=== PATIENT | female | born 1965 | race Caucasian/White ===

== ENCOUNTER 2017-08-22 13:05 | Emergency (ER) | payer SELFPAY ==
[~2017-08-22] VITALS: Ht 157.5 cm; Wt 61.7 kg
[~2017-08-22 13:05] MED LIST: ACEBUTCAFT PO; ALBU90OI INH; AMOCLA875 PO; AVINZA 30 MG; AZIT500 PO; BACL10 PO; CARI350; CARI350 PO; CIPR500 PO; CITA20 PO; CRUTCH3 USE; CYCL10 PO; DIAZ10; ERGO400 PO; ESOM20 PO; FLUT.05NI; HYDACE10B; HYDACE10B PO; HYDACE5; HYDACE5 PO; HYDR1TAB94 PO; HYDROCODONE/ACETAMIN; IBUHYD PO; IBUP200; IBUP400; IBUP600 PO; IBUP800; IBUP800 PO; LAVAP17G PO; LORA2 PO; MOMENI; NAPR500 PO; NAPR550 PO; Norco 5-325 Ta1 EACH PO; OMEP20ER PO; OXYACE5T PO; OXYC10TA19 PO; PENVK500 PO; PRAM.5; PRED20 PO; PREG50; PROC10 PO; PROM25 PO; Percocet 10-321 EACH PO; Percocet 5-3251 EACH PO; Protonix40 MG PO; RANI150 PO; RXCODACESY PO; RXCYCL10 PO; RXHYD5325 PO; RXHYDACE PO; RXLORA1 PO; RXNAPNA550 PO; RXOXYACE PO; RXPROM25 PO; RXTRAM50 PO; Robaxin500 MG PO; SENN187 PO; SERT50 PO; SPIHYD PO; Silvadene20 GM TP; TRAM50 PO; Ultram50 MG PO; VICODIN HP 10-1 EACH PO; Valium5 MG PO; Vibramycin100 MG PO; Vicodin PO; Zofran Odt4 MG SL; [UNRECOGNIZED DRUG - OTHER]
== END 2017-08-22 16:20 | disposition left against medical advice (07) ==
LOC: ER 13:05
DX: Z53.21 Procedure and treatment not carried out due to patient leaving prior to being seen by health care provider (principal)

== ENCOUNTER 2017-08-24 11:26 | Emergency (ER) | payer BC ==
[~2017-08-24] VITALS: Ht 157.5 cm; Wt 59.4 kg
== END 2017-08-24 16:55 | disposition home or self-care (01) ==
LOC: ER 11:26
DX: M21.332 Wrist drop, left wrist (principal); R53.1 Weakness; R20.2 Paresthesia of skin; G43.909 Migraine, unspecified, not intractable, without status migrainosus; Z88.6 Allergy status to analgesic agent; Z88.8 Allergy status to other drugs, medicaments and biological substances; Z88.5 Allergy status to narcotic agent; Z79.899 Other long term (current) drug therapy
CPT/HCPCS: 72141; 99284

== ENCOUNTER 2018-02-24 01:48 | Emergency (ER) | payer BC ==
[~2018-02-24] VITALS: Ht 154.9 cm; Wt 59.4 kg
[~2018-02-24 01:48] MED LIST changes: +GABA300 PO; +Roxicodone5 MG PO
== END 2018-02-24 03:25 | disposition home or self-care (01) ==
LOC: ER 01:48
DX: S52.302A Unspecified fracture of shaft of left radius, initial encounter for closed fracture (principal); S50.12XA Contusion of left forearm, initial encounter; Y04.8XXA Assault by other bodily force, initial encounter; Z88.6 Allergy status to analgesic agent; Z88.5 Allergy status to narcotic agent; Z88.8 Allergy status to other drugs, medicaments and biological substances; Z79.899 Other long term (current) drug therapy; Z79.891 Long term (current) use of opiate analgesic; G43.909 Migraine, unspecified, not intractable, without status migrainosus; F17.210 Nicotine dependence, cigarettes, uncomplicated
CPT/HCPCS: 29105; 73060; 73090; 96372; 99283-25; J3010

== ENCOUNTER 2018-03-22 22:10 | Emergency (ER) | payer BC ==
[~2018-03-22] VITALS: Ht 157.5 cm; Wt 57.6 kg
== END 2018-03-22 23:54 | disposition left against medical advice (07) ==
LOC: ER 22:10
DX: Z53.21 Procedure and treatment not carried out due to patient leaving prior to being seen by health care provider (principal)

== ENCOUNTER 2018-06-19 01:26 | Emergency (ER) | payer BC ==
[~2018-06-19] VITALS: Ht 157.5 cm; Wt 59.4 kg
== END 2018-06-19 02:50 | disposition home or self-care (01) ==
LOC: ER 01:26
DX: S09.90XA Unspecified injury of head, initial encounter (principal); F10.129 Alcohol abuse with intoxication, unspecified; Z88.5 Allergy status to narcotic agent; Z88.6 Allergy status to analgesic agent; Z79.899 Other long term (current) drug therapy; G43.909 Migraine, unspecified, not intractable, without status migrainosus; F17.210 Nicotine dependence, cigarettes, uncomplicated; X58.XXXA Exposure to other specified factors, initial encounter; Y09 Assault by unspecified means
CPT/HCPCS: 70450; 99284-25

== ENCOUNTER 2019-06-19 22:13 | Emergency (ER) | payer BC, MEDICARE ==
[~2019-06-19] VITALS: Ht 160 cm; Wt 57.6 kg
== END 2019-06-20 00:37 | disposition left against medical advice (07) ==
LOC: ER 22:13
DX: Z53.21 Procedure and treatment not carried out due to patient leaving prior to being seen by health care provider (principal)
CPT/HCPCS: 99281; 99283

== ENCOUNTER 2019-10-26 20:36 | Emergency (ER) | payer BC, MEDICARE ==
[~2019-10-26] VITALS: Ht 160 cm; Wt 54.9 kg
== END 2019-10-26 22:48 | disposition home or self-care (01) ==
LOC: ER 20:36
DX: S30.0XXA Contusion of lower back and pelvis, initial encounter (principal); Z76.5 Malingerer [conscious simulation]; Z88.6 Allergy status to analgesic agent; Z88.5 Allergy status to narcotic agent; Z79.899 Other long term (current) drug therapy; F17.200 Nicotine dependence, unspecified, uncomplicated; W19.XXXA Unspecified fall, initial encounter
CPT/HCPCS: 99283

== ENCOUNTER 2020-04-12 01:43 | Emergency (ER) | payer MEDICARE ==
[~2020-04-12] VITALS: Ht 160 cm; Wt 52.2 kg
[2020-04-12] MEDS ORDERED: LIDO700A20 TOP (03:30)
== END 2020-04-12 03:50 | disposition home or self-care (01) ==
LOC: ER 01:43
DX: M54.5 Low back pain (principal); G89.29 Other chronic pain; F17.200 Nicotine dependence, unspecified, uncomplicated; Z79.899 Other long term (current) drug therapy; Z88.6 Allergy status to analgesic agent; Z88.5 Allergy status to narcotic agent; Z88.8 Allergy status to other drugs, medicaments and biological substances
CPT/HCPCS: 72100; 99283-25; A9270

== ENCOUNTER 2020-08-17 20:17 | Emergency (ER) | payer MEDICARE ==
[~2020-08-17] VITALS: Ht 160 cm; Wt 53.1 kg
[~2020-08-17 20:17] MED LIST changes: +LIDO700A20 TOP
[2020-08-17] MEDS ORDERED: LIDO700A20 TOP (22:55)
== END 2020-08-17 22:10 | disposition home or self-care (01) ==
LOC: ER 20:17
DX: M54.5 Low back pain (principal); M25.552 Pain in left hip; F17.200 Nicotine dependence, unspecified, uncomplicated; Z88.6 Allergy status to analgesic agent; Z88.5 Allergy status to narcotic agent; Z88.8 Allergy status to other drugs, medicaments and biological substances; Z79.899 Other long term (current) drug therapy
CPT/HCPCS: 72100; 73502; 99283-25; A9270

== ENCOUNTER 2020-10-15 19:01 | Emergency (ER) | payer MEDICARE ==
[~2020-10-15] VITALS: Ht 157.5 cm; Wt 53.5 kg
== END 2020-10-15 22:30 | disposition left against medical advice (07) ==
LOC: ER 19:01
DX: R10.13 Epigastric pain (principal); R05 Cough; Z53.20 Procedure and treatment not carried out because of patient's decision for unspecified reasons; Z79.899 Other long term (current) drug therapy
CPT/HCPCS: 99284

== ENCOUNTER 2021-12-01 08:18 | Emergency (ER) | payer MEDICARE, OTHER ==
[~2021-12-01] VITALS: Ht 160 cm; Wt 58.5 kg
[~2021-12-01 08:18] MED LIST changes: +CEPH500 PO; +Pyridium200 MG PO
[2021-12-01] MEDS ORDERED: Vibramycin100 MG PO (09:23)
[2021-12-01 12:12] LABS: Candida species (DNA Probe) Negative (NEGATIVE); G. vaginalis (DNA Probe) Positive (NEGATIVE); T. vaginalis (DNA Probe) Positive (NEGATIVE)
[2021-12-03 01:09] LABS: CHLAMYDIA TRACHOMATIS, NAA Negative (Negative)
== END 2021-12-01 10:15 | disposition home or self-care (01) ==
LOC: ER 08:18
PROVIDERS: Physician Assistant
DX: M54.50 Low back pain, unspecified (principal); G89.29 Other chronic pain; M25.531 Pain in right wrist; F17.210 Nicotine dependence, cigarettes, uncomplicated; Z20.2 Contact with and (suspected) exposure to infections with a predominantly sexual mode of transmission; Z88.6 Allergy status to analgesic agent; Z88.5 Allergy status to narcotic agent; Z88.8 Allergy status to other drugs, medicaments and biological substances; Z79.899 Other long term (current) drug therapy
CPT/HCPCS: 36415; 72100; 73110; 86592; 87480; 87491; 87510; 87591; 87660; 96372-59; 96374; 99283-25; A9270; J0696; J1885

== ENCOUNTER 2022-03-31 22:34 | Emergency (ER) | payer MEDICARE, OTHER ==
[~2022-03-31] VITALS: Ht 160 cm; Wt 58.1 kg
[2022-03-31 23:09] LABS: BASOPHILS ABSOLUTE AUTO 0.09 K/mm3 (0.00-0.23); BASOPHILS PERCENT AUTO 1 % (0-2); EOSINOPHILS ABSOLUTE AUTO 0.17 K/mm3 (0.00-0.68); EOSINOPHILS PERCENT AUTO 2 % (0-6); Hematocrit 38.7 % (33.0-51.0); Hemoglobin 13.2 g/dL (11.5-16.0); IMMATURE GRAN ABSOLUTE AUTO 0.02 K/mm3 (0.00-0.10); IMMATURE GRAN PERCENT AUTO 0 % (0-1); LYMPHOCYTES ABSOLUTE AUTO 2.74 K/mm3 (0.84-5.20); LYMPHOCYTES PERCENT AUTO 31 % (21-46); MONOCYTES ABSOLUTE AUTO 0.53 K/mm3 (0.16-1.47); MONOCYTES PERCENT AUTO 6 % (4-13); Mean Corpuscular HGB 30.7 pg (26.0-34.0); Mean Corpuscular HGB Conc 34.1 g/dL (31.5-36.5); Mean Corpuscular Volume 90 fL (80-100); Mean Platelet Volume 9.4 fL (9.1-12.4); NEUTROPHILS ABSOLUTE AUTO 5.35 K/mm3 (1.96-9.15); NEUTROPHILS PERCENT AUTO 60 % (41-73); Platelet Count 236 K/mm3 (150-400); RDW Standard Deviation 42.6 fL (35.1-46.3)
[2022-03-31 23:26] LABS: Albumin, Blood 4.1 g/dL (3.4-5.0); Albumin/Globulin Ratio 1.1 (0.8-1.8); Bilirubin, Total 0.3 mg/dL (0.1-1.0); Bun/Creatinine Ratio 16.1 (12.0-20.0); Calcium, Blood 9.1 mg/dL (8.5-10.1); Creatinine, Blood 1.24 mg/dL (0.40-1.00); Globulin, Blood 3.6 g/dL (2.2-4.0); Potassium, Blood 3.5 mmol/L (3.5-5.5); Total Protein, Blood 7.7 g/dL (6.4-8.2)
[2022-04-01] MEDS ORDERED: Norco 5-325 Ta1 EACH PO (00:34)
[2022-04-01] MEDS ORDERED: Flagyl500 MG PO (00:34)
[2022-04-03 04:07] LABS: CHLAMYDIA TRACHOMATIS, NAA Negative (Negative)
== END 2022-04-01 00:50 | disposition home or self-care (01) ==
LOC: ER 22:34
PROVIDERS: Emergency Medicine
DX: N76.0 Acute vaginitis (principal); F17.210 Nicotine dependence, cigarettes, uncomplicated; Z88.8 Allergy status to other drugs, medicaments and biological substances; Z88.5 Allergy status to narcotic agent
CPT/HCPCS: 36415; 80053; 84703; 85025; 86592; 96374; 96375; 99284-25; A9270; J2270; J2405

== ENCOUNTER 2023-04-24 02:59 | Emergency (ER) | payer MEDICARE, OTHER ==
[~2023-04-24] VITALS: Ht 160 cm; Wt 59.9 kg
[~2023-04-24 02:59] MED LIST changes: +Flagyl500 MG PO
[2023-04-24] MEDS ORDERED: Doxycycline Hyclate 100 MG TAB PO ONE (05:00)
[2023-04-24] MEDS ORDERED: Cephalexin Monohydrate 500 MG Cap PO ONE (05:00)
[2023-04-24] MEDS ORDERED: OxyCODONE HCL 5 MG TAB PO ONE (05:25)
[2023-04-24] MEDS ORDERED: Ondansetron 4 MG SoluTab SL ONE (05:25)
[2023-04-24] MEDS ORDERED: CEPH500 PO (05:26)
[2023-04-24] MEDS ORDERED: OXAYDO5 M1 PO (05:27)
[2023-04-24] MEDS ORDERED: DOXY100 PO (05:27)
[2023-04-24 05:35] VITALS: BP 157/84
== END 2023-04-24 05:36 | disposition home or self-care (01) ==
LOC: ER 02:59
DX: L02.214 Cutaneous abscess of groin (principal); F17.210 Nicotine dependence, cigarettes, uncomplicated; Z88.5 Allergy status to narcotic agent; Z88.8 Allergy status to other drugs, medicaments and biological substances
CPT/HCPCS: 10060; 87070; 87075; 87077; 87205; 99283-25; A9270

== ENCOUNTER 2024-11-30 16:47 | Emergency (ER) | payer MEDICARE, OTHER ==
[~2024-11-30] VITALS: Ht 160 cm; Wt 56.7 kg
[~2024-11-30 16:47] MED LIST changes: +DOXY100 PO; +OXAYDO5 M1 PO
[2024-11-30 16:57] VITALS: BP 146/91
[2024-11-30 17:28] LABS: Source, Urine Clean Catch
[2024-11-30 17:29] LABS: Bilirubin, Urine Neg (Neg); Color, Urine Yellow (P-Yellow); Glucose Qualitative, Urine Neg (Neg); Ketones, Urine Neg (Neg); Leukocyte Esterase, Urine 1+ (Neg); Protein, Urine 1+ (Neg); Specific Gravity, Urine 1.020 (1.003-1.022); Urobilinogen, Urine NORM (Normal)
[2024-11-30 17:41] LABS: Red Blood Cells, Urine 0-2 /hpf (0-2)
[2024-11-30] MEDS ORDERED: ONDA4ODT MM (21:45)
[2024-11-30] MEDS ORDERED: Ondansetron 4 MG SoluTab SL ONE (21:45)
[2024-11-30] MEDS ORDERED: DOXY100 PO (21:45)
[2024-12-01 03:29] LABS: Candida Group, PCR NOT DETECTED (NOT DETECT); Candida glabrata-krusei, PCR NOT DETECTED (NOT DETECT)
[2024-12-01 04:00] LABS: Chlamydia Trachomatis Cervix NOT DETECTED (NOT DETECT); Neisseria Gonorrhoea Cervix NOT DETECTED (NOT DETECT)
[2024-12-01 04:38] LABS: Bacterial Vaginosis PCR Positive (NEGATIVE)
== END 2024-11-30 22:08 | disposition home or self-care (01) ==
LOC: ER 16:47
PROVIDERS: Emergency Medicine; Student in an Organized Health Care Education/Training Program
DX: N89.8 Other specified noninflammatory disorders of vagina (principal); R10.30 Lower abdominal pain, unspecified; F17.210 Nicotine dependence, cigarettes, uncomplicated; Z88.5 Allergy status to narcotic agent; Z88.6 Allergy status to analgesic agent; Z88.1 Allergy status to other antibiotic agents; Z88.8 Allergy status to other drugs, medicaments and biological substances
CPT/HCPCS: 81001; 81515; 87086; 87491; 87591; 96372; 99283-25; J0696